=== PATIENT | male | born 1985 | race Caucasian/White ===

== ENCOUNTER 2023-02-02 00:37 | Inpatient (IN) | payer OTHER ==
[~2023-02-02] VITALS: Ht 180.3 cm; Wt 145.2 kg
[2023-02-02 01:37] LABS: Influenza A, PCR NEGATIVE (NEGATIVE); Influenza B, PCR NEGATIVE (NEGATIVE); Resp Syncytial Virus, PCR NEGATIVE (NEGATIVE); SARS-Cov-2 (COVID-19) PCR, MMC NEGATIVE (NEGATIVE)
[2023-02-02 03:30] LABS: BASOPHILS ABSOLUTE AUTO 0.05 K/mm3 (0.00-0.23); BASOPHILS PERCENT AUTO 0 % (0-2); EOSINOPHILS ABSOLUTE AUTO 0.14 K/mm3 (0.00-0.68); EOSINOPHILS PERCENT AUTO 1 % (0-6); Hematocrit 47.7 % (37.0-53.0); Hemoglobin 16.4 g/dL (13.5-17.5); IMMATURE GRAN ABSOLUTE AUTO 0.07 K/mm3 (0.00-0.10); IMMATURE GRAN PERCENT AUTO 0 % (0-1); LYMPHOCYTES ABSOLUTE AUTO 0.99 K/mm3 (0.84-5.20); LYMPHOCYTES PERCENT AUTO 6 % (21-46); MONOCYTES ABSOLUTE AUTO 0.58 K/mm3 (0.16-1.47); MONOCYTES PERCENT AUTO 3 % (4-13); Mean Corpuscular HGB 28.7 pg (26.0-34.0); Mean Corpuscular HGB Conc 34.4 g/dL (31.5-36.5); Mean Corpuscular Volume 84 fL (80-100); Mean Platelet Volume 11.4 fL (9.1-12.4); NEUTROPHILS ABSOLUTE AUTO 15.18 K/mm3 (1.96-9.15); NEUTROPHILS PERCENT AUTO 89 % (41-73); Platelet Count 165 K/mm3 (150-400); RDW Coefficient Variation 13.5 % (11.7-14.2); RDW Standard Deviation 41.1 fL (35.1-46.3); Red Blood Cell Count 5.71 M/mm3 (4.30-5.90); White Blood Cell Count 17.01 K/mm3 (4.00-11.30)
[2023-02-02 03:53] LABS: C-REACTIVE PROTEIN, EXT RANGE 0.592 mg/dL (0.000-0.300)
[2023-02-02 03:55] LABS: Albumin, Blood 3.9 g/dL (3.4-5.0); Albumin/Globulin Ratio 0.9 (0.8-1.8); Bilirubin, Total 0.5 mg/dL (0.1-1.0); Calcium, Blood 8.9 mg/dL (8.5-10.1); Creatinine, Blood 0.92 mg/dL (0.60-1.20); Globulin, Blood 4.3 g/dL (2.2-4.0); Potassium, Blood 4.3 mmol/L (3.5-5.5); Total Protein, Blood 8.2 g/dL (6.4-8.2)
[2023-02-02 04:23] LABS: Adenovirus Not Detected (NOT DETECT); Coronavirus 229E Not Detected (NOT DETECT); Coronavirus HKU1 Not Detected (NOT DETECT)
[2023-02-02 04:24] LABS: Bordetella pertussis Not Detected (NOT DETECT); Chlamydophila pneumoniae Not Detected (NOT DETECT); Coronavirus NL63 Not Detected (NOT DETECT); Coronavirus OC43 Not Detected (NOT DETECT); Human Metapneumovirus Not Detected (NOT DETECT); Human Rhinovirus/Enterovirus Not Detected (NOT DETECT); Influenza A/2009-H1 Not Detected (NOT DETECT); Influenza A/H1 Not Detected (NOT DETECT); Influenza A/H3 Not Detected (NOT DETECT); Influenza B Not Detected (NOT DETECT); Mycoplasma pneumoniae Not Detected (NOT DETECT); Parainfluenza Virus 1 Not Detected (NOT DETECT); Parainfluenza Virus 2 Not Detected (NOT DETECT); Parainfluenza Virus 3 Not Detected (NOT DETECT); Parainfluenza Virus 4 Not Detected (NOT DETECT); Respiratory Syncytial Virus Not Detected (NOT DETECT); SARS-Cov-2 (COVID-19), BioFire Not Detected (NOT DETECT)
[2023-02-02 06:51] VITALS: BP 132/84
[2023-02-02 07:36] VITALS: BP 128/107
[2023-02-02 07:38] VITALS: BP 132/95
--- NOTE | 2023-02-02 07:43 | NUR ---
PATIENT ARRIVED TO UNIT AT 06:45 AT SHIFT CHANGE. A/Ox4, C/O GENERALIZED PAIN. ORDERS PENDING AT THIS TIME. DENIES SOB, DIFFICULTY BREATHING. INDEPENDANT IN ROOM, ABLE TO AMBULATE TO BATHROOM WITHOUT ASSIST. 24G PIV TO DAVID AND 22G TO LEFT ARM, SL. REPORTED TO ONCOMMING SHIFT NURSE. BED LOW, CALL LIGHT WITHIN REACH.
[2023-02-02 15:07] VITALS: BP 143/96
--- NOTE | 2023-02-02 15:39 | NUR ---
SHIFT SUMMARY PT ADMITTED DURING SHIFT REPORT AND THEN WANTING TO SLEEP. PT NOT WANTING TO BE WOKE UP AND THEN REFUSING LABS. LAB RETURNED SEVERAL TIMES BEFORE PT AGREED TO ALLOW THEM TO DRAW. PT THEN HAS BEEN DIFFICULT TO OBTAIN BLOOD D/T HX OF IV DRUG ABUSE. MULTIPLE ATTEMPTS MADE WITHOUT SUCCESS. DR GOODRICH UPDATED. RLE SWOLLEN AND BECOMING MORE RED SINCE START OF SHIFT. RLE ELEVATED ON PILLOWS AND MARKED FOR REDNESS. PT DECLINING TO EAT MUCH, BUT IS DRINKING WELL AND RECEIVING IVF'S PER EMAR. USING URINAL IN BED. NOT OOB TO PRESENT TODAY. IV ABX CONTINUE TO INFUSE PER EMAR WELL. PT'S MOM CALLED TO CK ON PT A COUPLE OF TIMES. S/O ALSO TO RM EARLIER THIS AM AND TO RETURN THIS EVENING. NO C/O. CALL LT IN REACH.
[2023-02-02 20:05] VITALS: BP 131/84
[2023-02-02 21:35] LABS: U Amphetamine Screen DETECTED; U Barbituate Screen Not Detected; U Benzodiazapine Screen Not Detected; U Buprenorphine Screen Not Detected; U Cannabinoids Screen DETECTED; U Cocaine Screen Not Detected; U Methadone Screen Not Detected; U Methamphetamine Screen DETECTED; U Opiates Screen Not Detected; U Oxycodone Screen Not Detected; U Phencyclidine Screen Not Detected; U Propoxyphene Screen Not Detected
[2023-02-03 03:44] VITALS: BP 145/82
--- NOTE | 2023-02-03 05:26 | NUR ---
PATIENT A/OX4, UP WITH SBA. VSS, ON RA. LAB ATTEMPTED SEVERAL TIMES ON DAY SHIFT YESTERDAY AND THIS SHIFT TO GET BLOOD AND WERE UNSUCCESSFUL. CHARGE NURSE NOTIFIED AND PLAN IS TO PLACE A POWERGLIDE TODAY. REDNESS TO RLE WITHIN ORIGINAL TRACING. PATIENT ACTING FEVERISH WITH CHILLS, VERY FLUSHED SKIM THIS SHIFT ALTHOUGH ORAL TEMP DID NOT REFLECT A FEVER. GIVEN TORADOL AND SOAKED BED AFTER FROM SWEAT AFTER. RECEIVING ANTIBIOTICS. REPORTS NAUSEA AND INDIGESTION, ZOFRAN AND MAALOX GIVEN TO TRAT WITH STATED RELIEF. PATIENT HAS BEEN PLEASANT AND COOPERATIVE WITH CARE. REPORTS LAST METH USE 1 WEEK AGO. CALLS APPROPRIATELY FOR ASSISTANCE.
[2023-02-03 07:32] VITALS: BP 158/83
[2023-02-03 10:06] LABS: BASOPHILS ABSOLUTE AUTO 0.04 K/mm3 (0.00-0.23); BASOPHILS PERCENT AUTO 0 % (0-2); EOSINOPHILS ABSOLUTE AUTO 0.06 K/mm3 (0.00-0.68); EOSINOPHILS PERCENT AUTO 0 % (0-6); Hematocrit 40.9 % (37.0-53.0); Hemoglobin 13.8 g/dL (13.5-17.5); IMMATURE GRAN ABSOLUTE AUTO 0.07 K/mm3 (0.00-0.10); IMMATURE GRAN PERCENT AUTO 1 % (0-1); LYMPHOCYTES ABSOLUTE AUTO 0.49 K/mm3 (0.84-5.20); LYMPHOCYTES PERCENT AUTO 4 % (21-46); MONOCYTES ABSOLUTE AUTO 0.68 K/mm3 (0.16-1.47); MONOCYTES PERCENT AUTO 5 % (4-13); Mean Corpuscular HGB 28.2 pg (26.0-34.0); Mean Corpuscular HGB Conc 33.7 g/dL (31.5-36.5); Mean Corpuscular Volume 84 fL (80-100); Mean Platelet Volume 11.5 fL (9.1-12.4); NEUTROPHILS ABSOLUTE AUTO 12.56 K/mm3 (1.96-9.15); NEUTROPHILS PERCENT AUTO 90 % (41-73); Platelet Count 128 K/mm3 (150-400); RDW Coefficient Variation 13.5 % (11.7-14.2); RDW Standard Deviation 41.2 fL (35.1-46.3)
[2023-02-03 10:32] LABS: Albumin, Blood 2.6 g/dL (3.4-5.0); Albumin/Globulin Ratio 0.6 (0.8-1.8); Bilirubin, Total 0.3 mg/dL (0.1-1.0); Bun/Creatinine Ratio 12.5 (12.0-20.0); Calcium, Blood 8.2 mg/dL (8.5-10.1); Creatinine, Blood 0.96 mg/dL (0.60-1.20); Magnesium, Blood 1.9 mg/dL (1.6-2.4); Potassium, Blood 3.6 mmol/L (3.5-5.5); Total Protein, Blood 6.6 g/dL (6.4-8.2)
--- NOTE | 2023-02-03 14:59 | NUR ---
SHIFT SUMMARY PT SLEEPING AT START OF SHIFT, BUT WOKE EASILY FOR CARE. ABLE TO EAT ALL OF BREAKFAST AND LUNCH TODAY. CHRG RN ABLE TO PLACE P.G. TO [place]. LAB NOTIFIED OF LINE AND LABS LATER OBTAINED. PT MEDICATED FOR C/O LOPEZ EARLIER. ICE BAG PROVIDED FIRST, PER PT REQUEST. PT'S S/O IN TO SEE PT TODAY. PT'S MOM CALLED TO CK ON PT EARLIER; UPDATE GIVEN. PT PRETENDS TO BE VERY DROWSY WHEN DR AND STEREOTYPE CASTER IN TO SEE HIM, BUT WAKES UP APPROPRIATELY WHEN S/O OR VISITORS IN. PT USING URINAL AT BS THRU OUT THE DAY AGAIN TODAY; URINE MUCH CERTIFIED RETINAL ANGIOGRAPHER TODAY THAN START OF YESTERDAY. DENIED FURTHER NEEDS AT THIS TIME. CALL LT IN REACH.
[2023-02-03 15:19] VITALS: BP 151/91
--- NOTE | 2023-02-03 19:18 | NUR ---
PT WOKE FOR DINNER. S/O HERE TO VISIT, PT AWAKE SITTING UP IN BED TALKING AND LAUGHING. BLACK MALE VISITOR TO DURING SHIFT REPORT.
[2023-02-03 19:55] VITALS: BP 143/91
[2023-02-03 22:52] LABS: Vancomycin, Trough 9.5 ug/mL (5.0-10.0)
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
[2023-02-04 05:43] LABS: Hematocrit 38.9 % (37.0-53.0); Hemoglobin 13.3 g/dL (13.5-17.5); Mean Corpuscular HGB 28.7 pg (26.0-34.0); Mean Corpuscular HGB Conc 34.2 g/dL (31.5-36.5); Mean Corpuscular Volume 84 fL (80-100); Platelet Count 119 K/mm3 (150-400); RDW Coefficient Variation 13.8 % (11.7-14.2); RDW Standard Deviation 42.5 fL (35.1-46.3); Red Blood Cell Count 4.63 M/mm3 (4.30-5.90); White Blood Cell Count 9.19 K/mm3 (4.00-11.30)
[2023-02-04 07:40] VITALS: BP 157/99
[2023-02-04] MEDS ORDERED: ACET325 PO (11:26)
[2023-02-04] MEDS ORDERED: VISBIOME 112.51 EACH PO (11:26)
[2023-02-04] MEDS ORDERED: CEPH500 PO (11:26)
--- NOTE | 2023-02-04 14:31 | NUR ---
SUMMARY/DISCHARGE PT DISCHARGED TO HOME, PT VERBALIZED UNDERSTANDING OF DISCHARGE INSTRUCTIONS REGARDING MEDS AND FOLLOW UP, POWERGLIDE REMOVED TIP INTACT, MEDS FAXED TO [facility], PT AMBULATED TO THE ELEVATOR INDEPENDENTLY, DECLINED A WHEELCHAIR, STATES "I'M TIRED OF THIS ROOM"
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
--- NOTE | 2023-02-04 15:37 | NUR ---
RN NOTE MR GONSALEZ IS RESTING IN BED AWAITING HIS GIRLFRIEND TO GIVE HIM A RIDE HOME. HE HAS DENIED NEEDING PAIN MEDICATIONS TODAY, SAID HE HAS LOW LEVEL LEG PAIN ONLY. HE DID SAY THAT HE FELT ANXIOUS THIS MORNING AND WAS READY TO BE DIOSCHARGED FROM [facility]. CYNTHIA PERFORMANCE REPORTER HAS CALLED THE GIRLFRIEND TO INFORM HER THAT PT NEEDS A RIDE HOME AND THAT HE IS WAITING FOR HER. PT HAS SLEPT FOR MUCH OF THE SHIFT. AWAKENS EASILY.
--- NOTE | 2023-02-04 15:58 | NUR ---
pt left with his girlfriend/ride at 1347hrs
== END 2023-02-04 14:32 | disposition home or self-care (01) | DRG 872 ==
LOC: ER 00:37 → MEDS 00:38 → ENPENDDIS 02-04 10:55 → MEDS 02-04 14:32
PROVIDERS: Internal Medicine; Student in an Organized Health Care Education/Training Program; ADMIT Student in an Organized Health Care Education/Training Program
DX: A41.9 Sepsis, unspecified organism (principal); L03.115 Cellulitis of right lower limb; Z68.41 Body mass index [BMI] 40.0-44.9, adult; E87.20 Acidosis, unspecified; Z20.822 Contact with and (suspected) exposure to COVID-19; E66.9 Obesity, unspecified; F12.10 Cannabis abuse, uncomplicated; F15.10 Other stimulant abuse, uncomplicated; F17.200 Nicotine dependence, unspecified, uncomplicated; Z98.890 Other specified postprocedural states
CPT/HCPCS: 0202U; 0241U; 71045; 80053; 80202; 83036; 83605; 83735; 85025; 85027; 85651; 86140; 87040; 93005; 93010; 96361; 96365; 96366; 96367; 96372; 96375; 96376; 99285-25; A9270; G0378; J0690; J0696; J1650; J1885; J2405; J3370; J7030; J7050

== ENCOUNTER 2023-04-20 11:10 | Observation (INO) | payer OTHER ==
[~2023-04-20] VITALS: Ht 180.3 cm; Wt 145.2 kg
[~2023-04-20 11:10] MED LIST: ACET325 PO; CEPH500 PO; VISBIOME 112.51 EACH PO
[2023-04-20 13:38] LABS: BASOPHILS PERCENT AUTO 1 % (0-2); EOSINOPHILS ABSOLUTE AUTO 0.12 K/mm3 (0.00-0.68); EOSINOPHILS PERCENT AUTO 1 % (0-6); Hematocrit 48.8 % (37.0-53.0); Hemoglobin 16.3 g/dL (13.5-17.5); IMMATURE GRAN ABSOLUTE AUTO 0.09 K/mm3 (0.00-0.10); IMMATURE GRAN PERCENT AUTO 0 % (0-1); LYMPHOCYTES ABSOLUTE AUTO 1.49 K/mm3 (0.84-5.20); LYMPHOCYTES PERCENT AUTO 7 % (21-46); MONOCYTES PERCENT AUTO 8 % (4-13); Mean Corpuscular HGB 28.3 pg (26.0-34.0); Mean Corpuscular HGB Conc 33.4 g/dL (31.5-36.5); Mean Corpuscular Volume 85 fL (80-100); Mean Platelet Volume 12.2 fL (9.1-12.4); NEUTROPHILS PERCENT AUTO 83 % (41-73); Platelet Count 201 K/mm3 (150-400); RDW Coefficient Variation 13.8 % (11.7-14.2); RDW Standard Deviation 42.4 fL (35.1-46.3); Red Blood Cell Count 5.75 M/mm3 (4.30-5.90)
[2023-04-20 14:08] LABS: Alanine Aminotransfer (ALT/SGP 120 U/L (12-78); Albumin, Blood 3.9 g/dL (3.4-5.0); Albumin/Globulin Ratio 0.9 (0.8-1.8); Alk Phos 85 U/L (50-136); Anion Gap 6 mmol/L (6-16); Aspartate Aminotrans (AST/SGOT 109 U/L (12-37); Bilirubin, Total 0.6 mg/dL (0.1-1.0); Blood Urea Nitrogen 14 mg/dL (8-24); Bun/Creatinine Ratio 12.3 (12.0-20.0); CO2, Blood 28 mmol/L (21-32); Chloride, Blood 109 mmol/L (98-108); Creatinine, Blood 1.14 mg/dL (0.60-1.20); Ethanol (Alcohol), Blood, Med <3 mg/dL; Globulin, Blood 4.4 g/dL (2.2-4.0); Glomerular Filtration Rate 83 (60-); Glucose, Blood 114 mg/dL (70-99); Potassium, Blood 3.6 mmol/L (3.5-5.5); Sodium, Blood 143 mmol/L (136-145); Total Protein, Blood 8.3 g/dL (6.4-8.2)
[2023-04-20] MEDS ORDERED: HYDR1TAB94 PO (14:14)
[2023-04-20 17:10] LABS: U Amphetamine Screen DETECTED; U Barbituate Screen Not Detected; U Benzodiazapine Screen Not Detected; U Buprenorphine Screen Not Detected; U Cannabinoids Screen DETECTED; U Cocaine Screen Not Detected; U Methadone Screen Not Detected; U Methamphetamine Screen DETECTED; U Opiates Screen DETECTED; U Oxycodone Screen Not Detected; U Phencyclidine Screen Not Detected; U Propoxyphene Screen Not Detected
[2023-04-20 18:02] VITALS: BP 128/84
[2023-04-20] MEDS ORDERED: IBUP200 PO (18:19)
[2023-04-20 20:05] VITALS: BP 155/90
[2023-04-21 04:19] VITALS: BP 132/93
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
[2023-04-21 07:53] VITALS: BP 131/92
--- NOTE | 2023-04-21 12:07 | NUR ---
KNEE IMMOBILIZER PLACED KNEE IMMOBLIZER TO L LEG PER ORTHO ORDER
[2023-04-21 15:27] VITALS: BP 142/86
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
[2023-04-21 20:10] VITALS: BP 132/68
[2023-04-22 03:30] VITALS: BP 107/62
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
[2023-04-22 08:06] VITALS: BP 153/96
[2023-04-22] MEDS ORDERED: Norco 5-325 Ta1 EACH PO (09:44)
[2023-04-22 14:54] VITALS: BP 143/82
--- NOTE | 2023-04-22 15:38 | NUR ---
THIS NURSE AND THE ROCKET ENGINE MECHANIC JUAN WENT INTO THE PATIENTS ROOM TO TALK ABOUT DISCHARGE AND TO GIVE HIM A RIDE HOME IF HE NEEDED IT AFTER HIS PERSONAL FWW WAS DELIEVERED INTO THE ROOM. PATIENT EVEN WITH VERBAL AND PHYSICAL STIMULI PATIENT WOULD NOT OPEN HIS EYES OR SAY A WORD, BUT WAS BREATHING EVEN/EQUAL RESPIRATIONS WITH VS WNL. THEN THIS NURSE WENT TO GET CHARGE NURSE YOUNG TO COME AND ASSESS THE PATIENT WELL. YOUNG RN CAME INTO THE ROOM AND TRIED LOUD VERBAL STIMULATING THE PATIENT AND THEN STERNAL RUBBED THE PATIENT. AFTER YOUNG RN STERNAL RUBBED THE PATIENT HE SWATED AT YOUNG RN'S HAND WITHOUT OPENING HIS EYES. YOUNG CALIX THEN CALLED DR. LAWRENCE AND TOLD HIM WHAT HAD HAPPENED AND THAT THE PATIENTS VS ARE WNL. DR. LAWRENCE THEN ORDERED A CBC AND BMP WELL IV NARCAN TO BE GIVEN. THEN THE NURSING SUPERVISIOR MARIANNE, CHARGE NURSE YOUNG, AND THIS NURSE CAME INTO THE PATIENTS ROOM WITH THE IV NARCAN. BEFORE ADMINISTERING THE IV NARCAN CHARGE NURSE MARIANNE TRIED PHYSICAL STIMULATION BY RUBBING THE PATIENTS SHOULDER BACK AND FORTH TO WAKE THE PATIENT UP. THE PATIENTS EYES OPENED AND HE STARTED SAYING TO CAREER COACH MARIANNE STATING "FUCK YOU MAN! I WILL FUCKING HURT YOU MAN! YOU SHOULD NOT WAKE PEOPLE UP LIKE THAT!". CAREER COACH MARIANNE STATED TO PATIENT HE CAN NOT PHYSICALLY OR VERBALLY ABUSE STAFF LIKE THAT AND IS ABSOLUTELY NOT TOLERATED. THEN THIS NURSE AND THE SHANK TAPPER CAME BACK INTO THE ROOM. THE PATIENT STATED "I COULD HEAR ALL OF YOU GUYS TALKING EARLIER ABOUT DISCHARGE BUT I DIDN'T WANT TO OPEN MY EYES TO TALK ABOUT IT SINCE I DON'T HAVE ANYWHERE TO GO". THE ROCKET ENGINE MECHANIC EXPLAINED TO THE PATIENT THE OPTIONS HE HAD AND THAT THE HOSPITAL WOULD COORDINATE A RIDE FOR HIM. PATIENT BECAME MORE COOPERATIVE AND VERBALLY ACCEPTED THE OPTIONS THAT WERE PRESENTED. THE ROCKET ENGINE MECHANIC HAD TO GO TO A MEETING BUT AFTER THE MEETING SHE WOULD SET UP A RIDE FOR THE PATIENT TO GO TO HIS GIRLFRIENDS HOUSE FOR HIM WHICH THE PATIENT VERBALLY AGREED TO THIS PLAN. THE PATIENT IS SITTING IN THE RECLINER CHAIR WITH CALL LIGHT IN REACH EATING SNACKS AT THE BEDSIDE TABLE.
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
--- NOTE | 2023-04-22 17:28 | NUR ---
TRANSPORT HAS ARRIVED AND IS WHEELCHAIRING THE PATIENT OUT TO HIS VAN WITH ALL OF THE PATIENTS PERSONAL SUPPLIES IN BAGS WELL HIS PERSONAL FWW IS BEING TAKEN OUT WITH HIM.
== END 2023-04-22 17:28 | disposition home or self-care (01) ==
LOC: ER 11:10 → SURS 11:11
PROVIDERS: Emergency Medicine; ADMIT Surgery
DX: S82.122A Displaced fracture of lateral condyle of left tibia, initial encounter for closed fracture (principal); V89.2XXA Person injured in unspecified motor-vehicle accident, traffic, initial encounter; F15.10 Other stimulant abuse, uncomplicated; S09.90XA Unspecified injury of head, initial encounter; S40.012A Contusion of left shoulder, initial encounter; S80.11XA Contusion of right lower leg, initial encounter; J45.901 Unspecified asthma with (acute) exacerbation; Z88.0 Allergy status to penicillin
CPT/HCPCS: 70450; 71260; 72125; 73030; 73562-LT; 73562-RT; 73590; 74177; 76937; 80053; 83690; 85025; 93458; 94640; 94664; 96372; 96374; 96375; 96376; 97110; 97162; 97530; 99152; 99153; 99285-25; A9270; C1769; C1894; G0378; J1650; J2270; J2310; J2405; J3010; J7120; Q9967

== ENCOUNTER 2023-04-30 13:26 | Emergency (ER) | payer OTHER ==
[~2023-04-30] VITALS: Ht 177.8 cm; Wt 145.2 kg
[~2023-04-30 13:26] MED LIST changes: +HYDR1TAB94 PO; +IBUP200 PO; +Norco 5-325 Ta1 EACH PO
[2023-04-30 15:16] LABS: BASOPHILS PERCENT AUTO 1 % (0-2); EOSINOPHILS ABSOLUTE AUTO 0.27 K/mm3 (0.00-0.68); EOSINOPHILS PERCENT AUTO 2 % (0-6); Hemoglobin 13.1 g/dL (13.5-17.5); IMMATURE GRAN ABSOLUTE AUTO 0.35 K/mm3 (0.00-0.10); IMMATURE GRAN PERCENT AUTO 2 % (0-1); LYMPHOCYTES ABSOLUTE AUTO 2.12 K/mm3 (0.84-5.20); LYMPHOCYTES PERCENT AUTO 12 % (21-46); MONOCYTES ABSOLUTE AUTO 1.16 K/mm3 (0.16-1.47); MONOCYTES PERCENT AUTO 6 % (4-13); Mean Corpuscular HGB 28.4 pg (26.0-34.0); Mean Corpuscular HGB Conc 33.6 g/dL (31.5-36.5); Mean Corpuscular Volume 85 fL (80-100); Mean Platelet Volume 11.9 fL (9.1-12.4); NEUTROPHILS ABSOLUTE AUTO 14.29 K/mm3 (1.96-9.15); NEUTROPHILS PERCENT AUTO 78 % (41-73); Platelet Count 133 K/mm3 (150-400); RDW Coefficient Variation 14.3 % (11.7-14.2); RDW Standard Deviation 43.3 fL (35.1-46.3); Red Blood Cell Count 4.61 M/mm3 (4.30-5.90); White Blood Cell Count 18.29 K/mm3 (4.00-11.30)
[2023-04-30 15:34] LABS: Albumin, Blood 3.3 g/dL (3.4-5.0); Albumin/Globulin Ratio 0.8 (0.8-1.8); Bilirubin, Total 0.5 mg/dL (0.1-1.0); Bun/Creatinine Ratio 13.9 (12.0-20.0); Calcium, Blood 8.7 mg/dL (8.5-10.1); Creatinine, Blood 1.37 mg/dL (0.60-1.20); Globulin, Blood 4.2 g/dL (2.2-4.0); Potassium, Blood 4.7 mmol/L (3.5-5.5); Total Protein, Blood 7.5 g/dL (6.4-8.2)
[2023-04-30 20:45] VITALS: BP 112/82
== END 2023-04-30 20:45 | disposition short-term general hospital (02) ==
LOC: ER 13:26
PROVIDERS: Emergency Medicine
DX: I26.99 Other pulmonary embolism without acute cor pulmonale (principal); K66.1 Hemoperitoneum; S36.039A Unspecified laceration of spleen, initial encounter; V89.2XXA Person injured in unspecified motor-vehicle accident, traffic, initial encounter
CPT/HCPCS: 36415; 71260; 74177; 80053; 83605; 83880; 84145; 85025; 86850; 86900; 86901; 93005; 93010; 96361; 96365-59; 96367; 99285-25; J0692; J7030; J7120; Q9967